=== PATIENT | female | born 1990 | race Caucasian/White ===

== ENCOUNTER → 2018-02-16 16:53 | Outpatient (CLI) | payer MEDICAID, SELFPAY ==
[2018-02-16 17:45] LABS: Hematocrit 35.9 % (37-47); Hemoglobin 12.1 g/dl (12.0-15.0); Mean Corp Hgb Conc 33.7 g/gl (32-36); Mean Corpuscular Hgb 31.2 pg (27.0-32.0); Mean Corpuscular Volume 92.5 fL (81-99); Mean Platelet Vol. 10.7 fl (6.2-12.0); Platelet Count 208 K/mm3 (150-450); RBC Distribution Width SD 42.7 fl (35.1-43.9); Red Blood Count 3.88 M/mm3 (4.2-5.4)
[2018-02-16 17:48] LABS: Scan Indicated on CBC? Y/N NO
[2018-02-17 08:14] LABS: Vitamin D,25 Hydroxy 14.2 ng/mL (29.95-100.01)
== END ==
PROVIDERS: Visit Provider Obstetrics & Gynecology
DX: Z34.83 Encounter for supervision of other normal pregnancy, third trimester (principal)
CPT/HCPCS: 82306; 85027

== ENCOUNTER → 2018-03-02 16:23 | Outpatient (CLI) | payer MEDICAID, SELFPAY ==
[2018-03-02 18:21] LABS: ALB/GLOB Ratio 0.7 RATIO (0.9-2.4); AST(SGOT) 18 U/L (15-37); Alanine Aminotransfer ALT/SGPT 52 U/L (13-56); Albumin, Serum 2.7 g/dL (3.2-5.0); Alkaline Phosphatase 71 U/L (45-117); Anion Gap 9 (5-15); BUN 11 mg/dL (7-18); BUN/Creat Ratio 35.9 RATIO (10-20); Calcium,Total 8.9 mg/dL (8.5-10.1); Chloride 108 mmol/L (98-107); Creatinine, Serum 0.31 mg/dL (0.55-1.02); EST Glomerular Filtration Rate 273 mL/min (>60); Est Glom Filt Rate - Afr Amer 330 mL/min (>60); Globulin 3.7 g/dL (2.2-4.2); Glucose 69 mg/dL (74-106); Potassium 3.7 mmol/L (3.5-5.1); Protein, Total 6.4 g/dL (6.4-8.2); Sodium Level 138 mmol/L (136-145); Uric Acid 3.1 mg/dL (2.6-6.0)
== END ==
PROVIDERS: Visit Provider Obstetrics & Gynecology
DX: O13.3 Gestational [pregnancy-induced] hypertension without significant proteinuria, third trimester (principal); Z3A.00 Weeks of gestation of pregnancy not specified
CPT/HCPCS: 36415; 80053; 84550

== ENCOUNTER → 2018-03-03 17:50 | Outpatient (CLI) | payer MEDICAID, SELFPAY ==
[2018-03-03 19:17] LABS: 24 Hour Urine Protein 251.1 mg/24HR (<150 MG/24HR); 24HR. UA Prot. Total Volume 1550 mL; 24HR. Urine Creatinine 1.51 g/24 HR (0.70-1.90); Urine Protein (24 Hour) 16.2 mg/dL (<11.9)
== END ==
PROVIDERS: Visit Provider Obstetrics & Gynecology
DX: O13.3 Gestational [pregnancy-induced] hypertension without significant proteinuria, third trimester (principal); Z3A.00 Weeks of gestation of pregnancy not specified
CPT/HCPCS: 82570; 84156

== ENCOUNTER 2018-03-19 06:30 | Outpatient (CLI) | payer MEDICAID, SELFPAY ==
[2018-03-19 06:53] VITALS: BMI 39.6
[2018-03-19 06:57] LABS: Bacteria 0 SEEN /hpf (None Seen); Color, Urine Yellow (Yellow); Glucose, Dipstick Normal (Normal); Ketone-Dipstick 5 mg/dl (Negative); Leukocyte Esterase-Dipstick 25 /ul (Negative); Mucous, Urine 0 SEEN /hpf (<or=2+); Nitrite-Dipstick Negative (Negative); Occult Blood-Urine 150 /ul (Negative); Protein-Dipstick 15 mg/dl (Negative); Red Blood Cells-Urine 0 SEEN /hpf (0-5); Specific Gravity, Urine 1.025 (1.002-1.030); Squamous Epithelial Cells - UA 0 SEEN /hpf (5-10); Urine Bilirubin Dipstick Negative (Negative); Urine Clarity Sl. Cloudy (Clear); Urine Urobilinogen Normal (Normal); White Blood Cells 0 SEEN /hpf (0-5)
[2018-03-19 08:56] LABS: Bedside Glucose 96 mg/dL (70-110)
--- NOTE | 2018-04-01 07:23 | OB.TRI.NOTE ---
- Problem List (1) 33 weeks gestation of Status: Acute History of Present Illness Date of Service: 03/19/18 Was patient seen by the physician?: No Reason For Visit: R/O LABOR Final ELIJAH: 05/06/18 Final ELIJAH Source: US <20 weeks Gestational age: 33 weeks 1 day History of Present Illness: 27yo @ 33 1/7wga with c/o contractions. Home Medications Medication Instructions Recorded Acetaminophen [Tylenol] 325 mg PO Q6H 03/19/18 Glyburide 1.25 mg PO BID 03/19/18 Vits [Prenatabs FA] 1 tablet PO DAILY 03/19/18 Allergies Penicillins Allergy (Verified 03/19/18 06:49) Hives NST - FHR Rate Baby A Baseline: 130 Variability:: Moderate Accelerations:: 15 x 15 Decelerations:: None NST Reactive:: Yes FHR Category:: Category I Uterine Activity:: irritability Impression/Plan 27yo at 33 1/7wga with false labor, Cat I FHR, h/o GDM U/A - neg FS - 96 SVE closed/long/high per RN; contractions resolved with food, water Will plan for d/c home
== END 2018-03-19 10:30 | disposition home or self-care (01) ==
LOC: WPOUT 06:41 → WP 06:43
PROVIDERS: Visit Provider Obstetrics & Gynecology
DX: O47.03 False labor before 37 completed weeks of gestation, third trimester (principal); Z3A.33 33 weeks gestation of pregnancy
CPT/HCPCS: 59025; 59050; 81001; 82962; 99218; G0378

== ENCOUNTER → 2018-04-20 17:34 | Outpatient (CLI) | payer MEDICAID, SELFPAY ==
[2018-04-20 19:34] LABS: Group B Strep DNA By PCR Negative (Negative); Internal Control PASS; Probe Check PASS; Specimen Processing Control PASS
== END ==
PROVIDERS: Visit Provider Obstetrics & Gynecology
DX: Z36.85 Encounter for antenatal screening for Streptococcus B (principal)
CPT/HCPCS: 87081; 87086; 87088; 87653

== ENCOUNTER 2018-04-30 05:18 | Inpatient (IN) | payer MEDICAID, SELFPAY ==
[2018-04-29 09:23] VITALS: BMI 39.9
[2018-04-29 10:30] LABS: Absolute Neutrophil Count 7.8 X10^3/uL (2.0-7.7); Basophil# 0.02 X10^3/uL; Basophil% 0.2 % (0-1); Eosinophil# 0.13 X10^3/uL; Eosinophils% 1.1 % (0-5); Hematocrit 40.1 % (37-47); Hemoglobin 13.2 g/dl (12.0-15.0); Lymphocyte % 23.1 % (19-41); Mean Corp Hgb Conc 32.9 g/gl (32-36); Mean Corpuscular Hgb 29.7 pg (27.0-32.0); Mean Corpuscular Volume 90.3 fL (81-99); Monocyte# 0.96 X10^3/uL; Monocyte% 8.2 % (0-10); Neutrophil # 7.83 X10^3/uL (2.7-7.7); Neutrophil % 67.1 % (47-70); POSITIVE COUNT NO; POSITIVE DIFFERENTIAL NO; POSITIVE MORPHOLOGY NO; Platelet Count 175 K/mm3 (150-450); RBC Distribution Width CV 13.4 % (11.6-14.6); RBC Distribution Width SD 43.7 fl (35.1-43.9); Red Blood Count 4.44 M/mm3 (4.2-5.4); White Blood Count 11.7 K/mm3 (4.4-11.0)
[2018-04-30] VITALS (19 sets, daily range): BP systolic 108–141; BP diastolic 53–84; PULSE 80–104; RESP 16–18; TEMP 36.1–36.7; O2SAT 95–100; BMI 39.9
--- NOTE | 2018-04-30 | LES_PTH ---
PATIENT: LUIS DANIEL MONTES LOC: WP U#:[id number] AGE/SX: 27/F ROOM: WP006 RE04/30/[address]: Dr. Gaby Buitrago MD : 1990 BED: 1 DIS: 05/02/2018 SPEC #: [id number] RECD: 04/30/18 14:28 STATUS: JAILYN REGissell #: [id number] LUIS: 04/30/18 00:[address]: Gaby Kearney DEPT: SURGICAL PATHOLOGY RECD BY: Isra Del Angel ENTERED: 04/30/18 14:43 SP TYPE: Lesion OTHR DR: No Primary Care Phys Tissues: A - Omentum, NOS B - Fallopian tube Procedures: Surgery Specimen Level II Surgery Specimen Level IV HEADER OPERATION: Bilateral tubal ligation PRE-OP DIAGNOSIS: LTCS, omental lesion TISSUE SUBMITTED: A - Omental lesion, B ? Fallopian tubes MICROSCOPIC DIAGNOSIS A. Omental lesion, Biopsy: A fibrous nodule with extensive fat necrosis. Adjacent adipose tissue with reactive changes. B. Bilateral fallopian tubes, tubal ligation: Completely transected segments of bilateral fallopian tubes, no pathologic diagnosis. ELISABETH:gay 05/05/18 TC:5 COMMENT Case has been reviewed in consultation with Dr. Castellanos who concurs with the above diagnosis. IDC:AM MICROSCOPIC DESCRIPTION Slides are reviewed. GROSS DESCRIPTION A - Received is one container labeled with the patient's name and not further designated. The specimen consists of a raza, indurated nodule measuring 1.5 x 1.5 x 1.3 cm. Also present is a piece of adipose tissue measuring 2.5 x 2.5 x 0.2 cm. The adipose tissue is attached to a nodule with a thin string. The nodule is bisected and reveals yellowish-brown, friable cut surfaces. The entire specimen is submitted in two cassettes as follows: 1 ? one bisected nodule after short decalcification, 2 ? rest of the specimen. B - Received in fixative is one container labeled with the patient's name and designated left suture. The specimen consists of two tubular pieces of pink-raza soft tissue with the left tube identified by a suture and inked black. The right tube measures 1.8 cm in length and 1 cm in diameter. The left tube measures 1.5 cm in length and 0.8 cm in diameter. Both pieces will be sectioned at the time of embedding. The entire specimen is submitted in one cassette. / SJ:nydia 04/30/18 TC:5 CPT: 04787 x2, 61377
[2018-04-30] MEDS: Lactated Ringers 1,000 ML 999 ML IV (05:42)
[2018-04-30 05:56] LABS: Bedside Glucose 180 mg/dL (70-110)
[2018-04-30] MEDS: Sodium Citrate/Citric Acid 30 ML UDC PO (06:43)
[2018-04-30] MEDS: Lactated Ringers 1,000 ML 150 ML IV (06:43)
[2018-04-30] MEDS: Clindamycin 900 MG/50 ML BAG 75 MG IV (07:22)
--- NOTE | 2018-04-30 07:29 | PCM.HPOB.BLA ---
- Problem List (1) Gestational diabetes mellitus (GDM) Status: Acute Qualifiers: Gestational diabetes mellitus control: oral hypoglycemic-controlled Trimester: third trimester Qualified Code(s): O24.415 - Gestational diabetes mellitus in , controlled by oral hypoglycemic drugs (2) 39 weeks gestation of Status: Acute History and Physical Date of Admission: 04/30/18 Surgical History and Physical Date: 04/30/2018 Name: LUIS DANIEL MONTES Age: 27 Date of : 1990 Luis Daniel Montes, a 27 year old female 1 0 0 0 1, presents for Primary LTCS, [facility] on 07/31/18 at 7:30. -- Luis Daniel is a at 39 1/7 weeks gestation with GDMA2 on Glyburide admitted for scheduled elective section. She has history of 1 prior complicated by GDM with shoulder dystocia with a male weight 10lb 1oz. She is without complaints this morning. Fetus is active. Denies contractions, leaking of fluid or vaginal bleeding. [facility] [address] MEDICATIONS HISTORY: Current medications prescribed by our practice are: 1. Celexa 20 mg tablet, 1 tab PO qday 2. glyburide 1.25 mg tablet, One pill by mouth twice a day 3. Vitamin D3 5,000 unit tablet, 1 tab PO daily Patient is also takin. Gummy 400 mcg-35 mg-25 mg-5 mg chewable tablet, One pill by mouth once a day ALLERGIES: Penicillins, Hives and/or rash Infections - HX. OF UTI'S, Illnesses/Medical history - depression, PCOS and prediabetes, gestational diabetes Accidents - None Hospitalizations - Childbirth, surgery and pancreatitis Review of Systems: SOCIAL HISTORY: Alcohol Use - RARELY not while Smoking - Smoker x 16 years. Currently 6-8 cigs daily. Usually smokes only at work. Diet - balanced Diet, caffeine > 2 drinks per day and 20 oz day Mt Dew. Water intake prob 4-5 glasses day. 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 LIves w husb and baby. Place of - [place] Hours Worked - 40-48 Spouse-Sig Other Name - Mike Montes Spouse-Sig Other Occupation - Floor Technical Education Teacher Spouse-Sig Other Phone No - [phone] Children Name(s) - Dionte Control - FAMILY HISTORY: Non-contributory MENSTRUAL HISTORY: LMP Known?- No, Prior Menses - 06/16/2016, LMP - 07/19/16, Age Onset Menarche - 10 PAST PREGNANCIES: Total Pregnancies - 2; Full Term Pregnancies - 1; Premature - 0; Abortions, Induced - 0; Abortions, Spontaneous - 0; Ectopics - 0; Multiple Births - 0; Living Children - 1 2017 - IOL with 11h active labor, , shoulder dystocia, MALE, 10lb 1oz, Dionte - gestational diabetes SURGICAL HISTORY: 1. Gall bladder removed 2008 ; - PHYSICAL EXAM BP- 136/84 Sitting, Right arm, regular cuff Weight- 105.7 kg Height- 63.5 inch BMI:40 T 36.7 C P 106 R 20 CONSTITUTIONAL - NAD, well nourished, and well developed SKIN - No rash, lesions, or ulcers HEENT - Normocephalic, PERRLA, EOMI NECK - No nodes, no nuchal rigidity and thyroid normal size and texture LUNGS - CTA x2 without wheezes, crackles or rales CARDIAC - Regular rate and rhythm without rubs, murmurs, or gallops BREAST - symmetric, nontender ABDOMEN - Without hepatosplenomegaly, distention, masses, rebound, or guarding; normal bowel sounds; no hernias EXTREMITIES - No edema or calf tenderness NEUROLOGICAL - normal gait, normal balance, normal motor PSYCHIATRIC - A and O to time, place, person, mood and affect External Genitial Vagina - deferred Urethra/Urethral Meatus - deferred Bladder - deferred Vagina - deferred Cervix - deferred Uterus - 40w size Adnexa - deferred FHR - 135bpm ASSESSMENT/PLAN: 1. Encounter for supervision of other normal , third trimester 2. Personal History Of Gestational Diabetes, Polycystic Ovarian Syndrome, Vitamin D Deficiency and Unspecified 3. Sterilization request -h/o prior shoulder dystocia -Us indicated FEMALE fetus, EFW with HC/AC 1.03 -Following discussion, patient and opt to proceed with section. R/B/I/A including trial of labor and potential for recurrent shoulder dystocia associated with reviewed. -Sterilization requested - reviewed various contraceptive options including reversible and non-reversible options. R/B/I of tuabl sterilization reviewed at length. Patient understands permanence and risk for failure as well as risk for ectopic should occur. Will plan bilateral tubal ligation with partial salpingectomy. -Consents signed previously, again reviewed today. Proceed as planned with section and BTL. Declines trial of labor. Declines LARC during hospitalization.
[2018-04-30] MEDS: Oxytocin 30 units/NS 500 ml 30 UNITS/500 ML IV.SOLN 167 UNITS IV (08:11)
[2018-04-30] MEDS: Lactated Ringers 1,000 ML 100 ML IV ×2 (09:00→17:37)
--- NOTE | 2018-04-30 09:10 | PCM.IMED.CSR ---
- Problem List (1) Gestational diabetes mellitus (GDM) Status: Acute Qualifiers: Gestational diabetes mellitus control: oral hypoglycemic-controlled Trimester: third trimester Qualified Code(s): O24.415 - Gestational diabetes mellitus in , controlled by oral hypoglycemic drugs (2) 39 weeks gestation of Status: Acute Y-Fnflejl-Gxalqwntv PostOp Date of Procedure: 04/30/18 Primary Surgeon/Physician: Gaby Nicole, flatwork folder: Jay Stewart Pre-op Diagnosis: Desires elective sterilization, - - Prior Shoulder dystocia, Gestational Diabetes Post-Op Diagnosis: Desires elective sterilization, - - Prior shoulder dystocia, gestational diabetes mellitus Surgery/Procedure Performed: Primary low transverse Section, - - Bilateral tubal ligation Description of Surgical Findings:: normal appearing tubes and ovaries Hardened, round omental nodule with rounded spicules. Estimated Blood Loss: 900 ml Specimens Removed: bilateral tubes, omental lesion Drain: Solis to straight drain Type of Anesthesia: Spinal - Admit VTE Documentation VTE Present on Admission: No VTE Mechan Device Prophylaxis: SCD's VTE Pharm Prophylaxis ordered?: No
--- NOTE | 2018-04-30 09:14 | OP.PN_ITS ---
- Problem List (1) Gestational diabetes mellitus (GDM) Status: Acute Qualifiers: Gestational diabetes mellitus control: oral hypoglycemic-controlled Trimester: third trimester Qualified Code(s): O24.415 - Gestational diabetes mellitus in , controlled by oral hypoglycemic drugs (2) 39 weeks gestation of Status: Acute O-Mwcijni-Oodlpwbrz PostOp Date of Procedure: 04/30/18 Primary Surgeon/Physician: Gaby Nicole, global human resources director: Jay Stewart Pre-op Diagnosis: Desires elective sterilization, - - Prior Shoulder dystocia, Gestational Diabetes Post-Op Diagnosis: Desires elective sterilization, - - Prior shoulder dystocia, gestational diabetes mellitus Surgery/Procedure Performed: Primary low transverse Section, - - Bilateral tubal ligation Description of Surgical Findings:: normal appearing tubes and ovaries Hardened, round omental nodule with rounded spicules. Estimated Blood Loss: 900 ml Specimens Removed: bilateral tubes, omental lesion Drain: Solis to straight drain Type of Anesthesia: Spinal - Admit VTE Documentation VTE Present on Admission: No VTE Mechan Device Prophylaxis: SCD's VTE Pharm Prophylaxis ordered?: No
--- NOTE | 2018-04-30 09:14 | PCM.OB.CSR ---
- Problem List (1) Gestational diabetes mellitus (GDM) Status: Acute Qualifiers: Gestational diabetes mellitus control: oral hypoglycemic-controlled Trimester: third trimester Qualified Code(s): O24.415 - Gestational diabetes mellitus in , controlled by oral hypoglycemic drugs (2) 39 weeks gestation of Status: Acute Delivery Classification: Scheduled Final ELIJAH: 04/29/18 Final ELIJAH Source: US <20 weeks Gestational age: 40 Weeks and 2 Days Indications: Oleg is a 27-year-old 2 para 1001 admitted at 39-1/7 weeks gestational age for scheduled elective section. She previously had a spontaneous vaginal delivery of a macrosomic with shoulder dystocia. Following counseling she opted to proceed with section for this delivery. Indications for : - - History of shoulder dystocia, sterilization request Description of Procedure: The patient was taken to the operating room and spinal analgesia was administered. She is placed in a dorsal supine position with left lateral tilt. The perineum and abdomen were prepped and draped in sterile fashion. The spinal was not adequate. Anesthesiology administered ketamine and I placed subcutaneous injection of 1% lidocaine. This was also injected layer by layer including the fascial and peritoneal surfaces throughout the procedure. A Pfannenstiel incision was made using a scalpel and brought down to incise the subcutaneous tissue and rectus fascia at the midline. Subcutaneous tissue was bluntly dissected off the fascia laterally. The fascial incision was dissected laterally and cephalad using curved Childers scissors. The superior leaflet of the rectus fascia was grasped using Lissy clamps and bluntly dissected and sharply dissected from the underlying rectus muscle. In a similar fashion the inferior rectus fascia was dissected from the underlying muscle. The rectus muscles were bluntly at the midline. The peritoneum was identified and entered [sharply]. The bladder blade was placed into the abdomen and the vesicouterine peritoneal fold identified. The fold was incised and a bladder flap created. Bladder blade was then repositioned to the abdomen. A low transverse hysterotomy was made using the [Metzenbaum scissors] to level of the membranes. The hysterotomy was extended bluntly cephalad and caudad. The membranes were then ruptured revealing clear fluid. The head was elevated and brought to the level of the hysterotomy and the infant delivered revealing vigorous [female] . The cord was doubly clamped and cut after approximately 30-60 seconds. The was passed to awaiting [nursery personnel]. The placenta was [expressed] from the uterus and appeared intact on inspection. The uterus was exteriorized and cleared of debris. The hysterotomy was then repaired using 0 Vicryl running lock suture. A second imbricating layer was also placed for additional hemostasis. Attention was turned to the right adnexa. The tube and fimbria were identified. A Waleska tubal ligation with partial salpingectomy was performed using 0-plain gut. In similar fashion this was also done on the left tube. The uterus and adnexa were returned to the abdomen. The omentum had a 1 cm hardened nodule with rounded spicules. Its etiology was uncertain thus this omentum was doubly clamped and the lesion excised. The distal omentum was suture-ligated using 0 Vicryl with good hemostasis the omentum return to the abdomen. The bladder blade was removed. The peritoneum was reapproximated using 2-0 Vicryl running suture. The rectus fascia was closed using 0 Vicryl running suture. Small capillary bleeding the subcutaneous tissue controlled using the Bovie device. The subcutaneous tissue was reapproximated using 2-0 Vicryl. The skin was closed using 4-0 Monocryl subcuticularly. A silver Mepilex occlusive dressing was placed over the incision. The fundus was firm. The patient was then transferred to the recovery room without complication. Sponge, instrument, and needle counts were correct ?2. A total of 30mL of 1% lidocaine was administered. Findings: normal appearing tubes and ovaries; Hardened, round omental nodule with rounded spicules. Amniotic Membrane Rupture Type: Artificial Amniotic Fluid Description: Clear Placenta Disposition: [facility] Specimen(s) sent to pathology: bilateral tubes, omental lesion Drain: Solis to straight drain Fluids Replaced: 1700 ml Cord Entanglement: None Nuchal Cord Compression: Without compression Cord Vessel Description: 3 Vessels Esitmated Blood Loss (ml): 900 Infant Gender: Female (1 minute): 9 (5 minute): 9 Delayed cord clamping: Yes Pre-op Antibiotic Given: - - Gentamicin 5mg/kg IV x 1, Clindamycin 900mg IV x 1 Pt instructed on risks of surgery: Bleeding, Anesthesia Risks, Infection, Injury to surrounding structure(s) including bowel and bladder, Availability of other non-permanent control options Complications: None - Admit VTE Documentation VTE Present on Admission: No VTE Mechan Device Prophylaxis: SCD's VTE Pharm Prophylaxis ordered?: No
--- NOTE | 2018-04-30 10:19 | NURSING ---
Patient has silver mepilex over surgical incision.
[2018-04-30 10:50] LABS: Bedside Glucose 112 mg/dL (70-110)
--- NOTE | 2018-04-30 13:47 | NURSING ---
Report given to Rosalinda Birmingham RN. She will assume care at this time.
[2018-04-30] MEDS: Citalopram 20 MG Tablet PO (16:15)
[2018-04-30] MEDS: Prenatal Vits Tablet 1 TABLET PO (16:15)
--- NOTE | 2018-04-30 21:09 | NURSING ---
Resp therapy called to deliver incentive spirometer.
[2018-05-01] VITALS (7 sets, daily range): BP systolic 122–140; BP diastolic 57–80; PULSE 80–105; RESP 16–40; TEMP 36.2–36.8; O2SAT 96–99
[2018-05-01] MEDS: Ketorolac 30 MG/ML Syringe IV ×4 (01:40→20:05)
[2018-05-01] MEDS: Lactated Ringers 1,000 ML 100 ML IV (04:00)
[2018-05-01 05:56] LABS: Bedside Glucose 102 mg/dL (70-110)
--- NOTE | 2018-05-01 05:56 | PN.OBGYN_ITS ---
Patient Problems: Active and Suspected Problems (Last Updated 05/01/18 @ 06:00 by Gaby Buitrago MD) Gestational diabetes mellitus (GDM) (Acute) 39 weeks gestation of (Acute) Subjective: Chastity is sore, but pain is improved with Toradol. She is using incentive spirometry. Denies chest pain, shortness of breath. She is bottlefeeding. Not yet passed gas. Denies nausea or vomiting. Informed by RN that patient with tachypnea while sleeping earlier in evening to 40, now resolved. On discussion, pt indicates her tells her she snores often. She has not had a prior sleep study. Objective: AVSS - Physical Exam General: Alert, Oriented x3, Cooperative, No apparent distress HEENT: Atraumatic, PERRLA, EOMI, Normocephalic Lungs: Clear to auscultation, Normal air movement Cardiovascular: Regular rate, Regular Rhythm, Normal S1, Normal S2, No murmurs Abdomen: Bowel Sounds Present, Soft, Non Tender, - - Fundus firm and nontender, incisional dressing c/d/i, lochia moderate Extremities: No edema, No Calf Tenderness Neurological: Neuro grossly intact Psych/Mental Status: Normal Affect, Appropriate, Alert and oriented to time, place, person, mood and affect Vital Signs Temp Pulse Resp BP Pulse Ox 97.1 F L 89 38 H 127/68 H 96 05/01/18 04:40 05/01/18 04:40 05/01/18 04:40 05/01/18 04:40 05/01/18 04:40 Oxygen Delivery Method Room Air Weight: 105.7 kg Body Mass Index (BMI) 39.9 Intake and Output for Last 24 Hours 04/29/18 04/30/18 05/01/18 23:59 23:59 23:59 Intake Total 4065 / 4065 923 / 923 Output Total 200 / 200 1000 / 1000 Balance 3865 / 3865 -77 / -77 POC Glucose 04/30/18 04/30/18 10:43 05:28 POC Glucose 112 H 180 H Medical Necessity - Tobacco Use Smoking Status: Current every day smoker Tobacco Use: Non-smoker Assessment/Plan All Active Problems (Last Updated 05/01/18 @ 06:00 by Gaby Nicole MD) Gestational diabetes mellitus (GDM) (Acute) Shoulder (girdle) dystocia during labor and deliver, delivered (Resolved) (spontaneous vaginal delivery) (Resolved) 39 weeks gestation of (Acute) 27yo POD#1 s/p PLTCS with BTL -Rh positive, Rubella immune -Ambulation encouraged -Incentive spirometry encouraged -f/u am CBC -GDM: Fasting FS 102, plan for 2h OGTT in 6-12 weeks. -Routine postop care -Bottlefeeding
[2018-05-01] MEDS: 0.9% Saline Lock 10 ML Syringe IV ×2 (06:16→20:05)
[2018-05-01 06:21] LABS: Hematocrit 30.2 % (37-47); Hemoglobin 10.2 g/dl (12.0-15.0); Mean Corp Hgb Conc 33.8 g/gl (32-36); Mean Corpuscular Hgb 31.1 pg (27.0-32.0); Mean Corpuscular Volume 92.1 fL (81-99); Mean Platelet Vol. 10.5 fl (6.2-12.0); Platelet Count 140 K/mm3 (150-450); RBC Distribution Width CV 13.2 % (11.6-14.6); RBC Distribution Width SD 43.5 fl (35.1-43.9); Red Blood Count 3.28 M/mm3 (4.2-5.4); White Blood Count 12.6 K/mm3 (4.4-11.0)
[2018-05-01 06:22] LABS: Scan Indicated on CBC? Y/N NO
[2018-05-01 06:27] LABS: ALB/GLOB Ratio 0.7 RATIO (0.9-2.4); AST(SGOT) 18 U/L (15-37); Alanine Aminotransfer ALT/SGPT 13 U/L (13-56); Alkaline Phosphatase 70 U/L (45-117); Anion Gap 8 (5-15); BUN 7 mg/dL (7-18); Calcium,Total 8.1 mg/dL (8.5-10.1); Chloride 109 mmol/L (98-107); Creatinine, Serum 0.47 mg/dL (0.55-1.02); EST Glomerular Filtration Rate 167 mL/min (>60); Est Glom Filt Rate - Afr Amer 202 mL/min (>60); Estimated Creatinine Clearance 152.51 ml/min; Glucose 98 mg/dL (74-106); Potassium 4.1 mmol/L (3.5-5.1); Sodium Level 139 mmol/L (136-145)
--- NOTE | 2018-05-01 06:46 | PCM.DC.D&C ---
Discharge Diet: No Restrictions Discharge Activity: Return to Normal Activity, May not drive while taking narcotic pain medications., May Shower, - - No tub bath May resume sexual activity in: 6 weeks Lifting Restrictions: 10 lb Call your doctor if your incision/area has: Continuous Slow Oozing, Sudden Increased Bleeding, Increased Redness Call your doctor if you observe: Fever of 101 or Higher, Inability to urinate, Inability to have a bowel movement, Using more than one pad per hour, Shortness of breath, Chest pain, Calf discomfort, Uncontrolled pain Suture Line Care: Avoid Pulling/Pushing Remove Dressing in (days):: 5 Cleanse incision/area with: Soap & Water Allergies/Adverse Reactions: Allergies Penicillins Allergy (Verified 04/30/18 05:29) Hives Medications to take at Discharge Acetaminophen [Tylenol] 325 mg PO Q6H 03/19/18 Glyburide 1.25 mg PO BID 03/19/18 Vits [Prenatabs FA] 1 tablet PO DAILY 03/19/18 Citalopram Hydrobromide [Celexa] 20 mg PO DAILY 04/29/18 Docusate Sodium [Colace] 100 mg PO BID PRN PRN #60 cap 05/01/18 Ibuprofen 600 mg PO TID PRN #30 tab 05/01/18 Oxycodone [Oxyir] 1 - 2 tab PO Q4H PRN PRN 3 Days #28 tablet 05/01/18 The following prescriptions were given: Oxycodone [Oxyir] 1 - 2 tab PO Q4H PRN PRN 3 Days #28 tablet PRN Reason: Pain Docusate Sodium [Colace] 100 mg PO BID PRN PRN #60 cap PRN Reason: Constipation Ibuprofen 600 mg PO TID PRN #30 tab PRN Reason: Pain Primary Care Physician: Care Physician,No Primary [Primary Care Provider] - Please Follow Up With: Gaby Nicole MD When: 7-10 days
--- NOTE | 2018-05-01 07:11 | NURSING ---
0615 Iv to mari tellesey removed at 0630. Instructions given to mom regarding call RN before getting up first time and need to acquire 2 voids.
[2018-05-01 09:38] LABS: Pathology Specimen OB SEE PATHOLOGY REPORT
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
[2018-05-01] MEDS: Citalopram 20 MG Tablet PO (10:57)
[2018-05-01] MEDS: Prenatal Vits Tablet 1 TABLET PO (10:57)
[2018-05-01] MEDS: Senna/Docusate Sodium 1 Tablet PO (22:57)
[2018-05-02] MEDS: 0.9% Saline Lock 10 ML Syringe IV ×2 (01:48→08:22)
[2018-05-02] MEDS: Ketorolac 30 MG/ML Syringe IV ×2 (01:48→08:21)
[2018-05-02 01:50] VITALS: BP 121/73; PULSE 98; RESP 18; TEMP 36.7; O2SAT 97
[2018-05-02 08:00] VITALS: BP 133/78; PULSE 101; RESP 24; TEMP 36.9
--- NOTE | 2018-05-02 10:37 | PN.OBGYN_ITS ---
Patient Problems: Active and Suspected Problems (Last Updated 05/01/18 @ 06:00 by Gaby Buitrago MD) Delivery by elective section (Acute) Gestational diabetes mellitus (GDM) (Acute) 39 weeks gestation of (Acute) Subjective: Pain is controlled. Patient has been out of bed, ambulating and voiding without difficulty. Passing flatus, no bowel movement yet. She desires discharge today. Objective: AVSS - Physical Exam General: Alert, Oriented x3, Cooperative, No apparent distress HEENT: Atraumatic, Normocephalic Lungs: Clear to auscultation, Normal air movement Cardiovascular: Regular rate, Regular Rhythm, Normal S1, Normal S2 Abdomen: Bowel Sounds Present, Soft, Non Tender, - - Fundus firm and nontender - Silverlon dressing c/d/i Extremities: No edema, No Calf Tenderness Neurological: Neuro grossly intact Psych/Mental Status: Normal Affect, Appropriate, Alert and oriented to time, place, person, mood and affect Vital Signs Temp Pulse Resp BP Pulse Ox 98.4 F 101 H 24 H 133/78 H 97 05/02/18 08:00 05/02/18 08:00 05/02/18 08:00 05/02/18 08:00 05/02/18 01:50 Oxygen Delivery Method Room Air Weight: 105.7 kg Body Mass Index (BMI) 39.9 Intake and Output for Last 24 Hours 04/30/18 05/01/18 05/02/18 23:59 23:59 23:59 Intake Total 4065 / 4065 2084 / 2084 Output Total 200 / 200 2325 / 2325 Balance 3865 / 3865 -241 / -241 Medical Necessity - Tobacco Use Smoking Status: Current every day smoker Tobacco Use: Non-smoker Assessment/Plan All Active Problems (Last Updated 05/01/18 @ 06:00 by Gaby Nicole MD) Delivery by elective section (Acute) Gestational diabetes mellitus (GDM) (Acute) Shoulder (girdle) dystocia during labor and deliver, delivered (Resolved) (spontaneous vaginal delivery) (Resolved) 39 weeks gestation of (Acute) 27yo POD#2 s/p PLTCS with BTL -Rh positive, Rubella immune -Ambulation encouraged -Routine postop care -Bottlefeeding -d/c home today
[2018-05-02] MEDS: Citalopram 20 MG Tablet PO (10:49)
[2018-05-02] MEDS: Prenatal Vits Tablet 1 TABLET PO (10:49)
--- NOTE | 2018-05-02 11:25 | DS.PCM_ITS ---
Discharge Date and Diagnosis - Problem List Patient Problems: Active and Suspected Problems (Last Updated 05/01/18 @ 06:00 by Gaby Buitrago MD) Delivery by elective section (Acute) Gestational diabetes mellitus (GDM) (Acute) 39 weeks gestation of (Acute) Date of Admission: 04/30/18 Date of Discharge: 05/02/18 - Primary Discharge Diagnosis Active and Suspected Problems (Last Updated 05/01/18 @ 06:00 by Gaby Buitrago MD) Delivery by elective section (Acute) Gestational diabetes mellitus (GDM) (Acute) 39 weeks gestation of (Acute) Hospital Course and Treatment Operations: - - Low transverse section, bilateral tubal ligation Summary of Care Provided: The patient is a 27 year old F admitted at 39 weeks gestation with h/o gestational diabetes for scheduled section for history of prior shoulder dystocia. She underwent a section with bilateral tubal ligation per her sterilization request. Her post-operative course was unremarkable apart from an episode of tachypnea with short duration apnea while sleeping. She was out of bed, ambulating and pain controlled. Her fasting blood sugar was 102 post-op. She was discharged to home on post operative day #2. Will plan for outpatient pulmonology follow up. Discharge Diet: No Restrictions Discharge Activity: Return to Normal Activity, May not drive while taking narcotic pain medications., May Shower, - - No tub bath May resume sexual activity in: 6 weeks Call your doctor if your incision/area has: Continuous Slow Oozing, Sudden Increased Bleeding, Increased Redness Call your doctor if you observe: Fever of 101 or Higher, Inability to urinate, Inability to have a bowel movement, Using more than one pad per hour, Shortness of breath, Chest pain, Calf discomfort, Uncontrolled pain Suture Line Care: Avoid Pulling/Pushing Remove Dressing in (days):: 5 Cleanse incision/area with: Soap & Water Home Medications: Medications to take at Discharge Acetaminophen [Tylenol] 325 mg PO Q6H 03/19/18 Vits [Prenatabs FA ] 1 tablet PO DAILY 03/19/18 Citalopram Hydrobromide [Celexa] 20 mg PO DAILY 04/29/18 Docusate Sodium [Colace] 100 mg PO BID PRN PRN #60 cap 06/23/18 Ibuprofen 600 mg PO TID PRN #30 tab 05/01/18 Oxycodone [Oxyir] 1 - 2 tab PO Q4H PRN PRN 3 Days #28 tablet 05/01/18 Following Prescrptions Were Given to Patient: Oxycodone [Oxyir] 1 - 2 tab PO Q4H PRN PRN 3 Days #28 tablet PRN Reason: Pain Docusate Sodium [Colace] 100 mg PO BID PRN PRN #60 cap PRN Reason: Constipation Ibuprofen 600 mg PO TID PRN #30 tab PRN Reason: Pain Primary Care Physician: Care Physician,No Primary [Primary Care Provider] - Please Follow Up With: Gaby Nicole MD When: 7-10 days Additional Instructions: Will refer to Pulmonology for sleep testing Disposition: Home Medical Necessity - Tobacco Use Smoking Status: Current every day smoker Tobacco Use: Non-smoker Meaningful Use Info Meaningful Use Diagnoses (Choose all that apply): None applicable
[2018-05-02 12:00] VITALS: BP 120/64; PULSE 90; RESP 18; TEMP 36.6; O2SAT 98
[2018-05-06 11:37] LABS: Pathology Specimen OB SEE PATHOLOGY REPORT
--- NOTE | 2018-05-06 11:38 | NURSING ---
Follow up phone call attempted left message
== END 2018-05-02 12:50 | disposition home or self-care (01) | DRG 371 ==
PROVIDERS: Admitting Provider Obstetrics & Gynecology; Visit Provider Obstetrics & Gynecology
PROC: 10D00Z1 Extraction of Products of Conception, Low, Open Approach (ICD-10-PCS; CPT 59514; principal; 2018-04-30 07:15)
DX: O24.425 Gestational diabetes mellitus in childbirth, controlled by oral hypoglycemic drugs (principal); O69.81X0 Labor and delivery complicated by cord around neck, without compression, not applicable or unspecified; O99.344 Other mental disorders complicating childbirth; F32.9 Major depressive disorder, single episode, unspecified; O99.334 Smoking (tobacco) complicating childbirth; F17.210 Nicotine dependence, cigarettes, uncomplicated; K66.8 Other specified disorders of peritoneum; Z3A.39 39 weeks gestation of pregnancy; Z37.0 Single live birth; Z79.84 Long term (current) use of oral hypoglycemic drugs; Z79.899 Other long term (current) drug therapy
CPT/HCPCS: 80053; 82962; 85025; 85027; 86850; 86900; 88302; 88305; 99218; J7120; A4216; G0378; J3490

== ENCOUNTER → 2018-06-21 18:04 | Outpatient (CLI) | payer MEDICAID, SELFPAY ==
[2018-06-21 18:36] LABS: Hemoglobin A1c 5.4 % (4.2-6.3)
== END ==
PROVIDERS: Visit Provider Obstetrics & Gynecology
DX: E28.2 Polycystic ovarian syndrome (principal)
CPT/HCPCS: 83036

== ENCOUNTER 2019-07-07 11:47 | Emergency (ER) | payer SELFPAY ==
[2019-07-07 11:48] VITALS: BP 164/103; PULSE 105; RESP 18; TEMP 36.4; O2SAT 98; BMI 39.4
--- NOTE | 2019-07-07 12:05 | ED.VIS.GEN ---
History of Present Illness Chief Complaint: Upper Extremity Injury Informant: Patient Onset: Days Context: Gradual Onset Timing: Intermittent Current Severity: Moderate Maximum Severity: Moderate Narrative: The patient is a [id number] female who presents to the emergency department with pain in her left forearm and intermittent numbness in her hand. 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 She states over the past 3 days, she is noticed some pain on the dorsum of her forearm and tingling into her hand. She states that is worse in the morning. She denies any weakness. She denies any loss of function. She thinks that she may have strained a muscle but does not recall any specific trauma. She has not tried anything for it. Prior similar symptoms: No Recent Illness/Hospitalization: No Past Medical History - Allergies and Home Meds Allergies/Adverse Reactions: Allergies Penicillins Allergy (Verified 07/07/19 11:50) Sally Primary Care Physician: Care Physician,No Primary [Primary Care Provider] - Prior records reviewed: Yes Past Medical History: None Surgical History: no surgical history Smoking Status: Current every day smoker Review of Systems General: Denies: Chills, Fever, Sweats Eyes: Denies: Visual changes - bilaterally, Diplopia ENT: Denies: Rhinorrhea, Sore throat Cardiovascular: Denies: Chest pain, Palpitations Respiratory: Denies: Dyspnea, Cough, Dyspnea on exertion Gastrointestinal: Denies: Abdominal pain, Nausea, Vomiting, Diarrhea, Melena, Hematochezia Genitourinary: Denies: Dysuria, Hematuria, Frequency Musculoskeletal: Reports: Myalgias. Denies: Back pain, Extremity Pain Skin: Denies: Rash, Wounds Neurological: Denies: Headache, Weakness, Numbness Physical Exam Vital Signs/Narrative: Vital Signs Temp Pulse Resp BP Pulse Ox 07/07/19 11:48 97.6 F L 105 H 18 164/103 H 98 Inital Vital Signs reviewed: Yes General: Well nourished, Well developed, No Acute Distress Head: Normocephalic, Atraumatic Eyes: Perrl, EOMI ENT: Moist mucous membranes, No rhinorrhea Neck: Supple, Nontender Cardiovascular: Regular rate, Regular rhythm, No murmurs Respiratory: No distress, CTA bilaterally, Chest nontender Abdomen: Soft, Nontender, Nondistended, Normal bowel sounds Back: Nontender, Normal Inspection Extremities: No edema, Tenderness - Patient has tenderness on the dorsum of the forearm near the elbow. It is over the muscular belly. She has normal pulses of the upper extremity. There is no edema. There is no erythema. She has normal neurologic function distally. Skin: Normal color, No rash Neurological: Alert, Oriented x3, Cranial nerves II-XII grossly intact, Normal Strength, Normal Sensation Psychological: Normal affect, Normal Mood Diagnostic/Tx/Re-eval - Medical Decision Making The patient symptoms do seem consistent with a tendinitis. She has had repetitive motion. With hyperflexion or extension of the wrist, she gets pain in the forearm. Pulses are normal. The compartments are soft. I am going to treat the patient with a Velcro wrist splint especially at night to allow the area to rest. She will also be placed on anti-inflammatories. She will be given outpatient orthopedic follow-up as needed. She is comfortable with this plan of care. Impression 1. Left forearm tendinitis ED Disposition - Plan for ED Patient: Instructions: Wrist Sprain Prescriptions: Naproxen [Naprosyn] 500 mg PO BID PRN #20 tab Prescription Printed Referrals: Chepe Mcmahon DO [STAFF PHYSICIAN] - 3-5 Days if not improving
== END 2019-07-07 12:28 | disposition home or self-care (01) ==
PROVIDERS: Emergency Provider Emergency Medicine
DX: M77.9 Enthesopathy, unspecified (principal); F17.200 Nicotine dependence, unspecified, uncomplicated; Z88.0 Allergy status to penicillin
CPT/HCPCS: 99283

== ENCOUNTER 2019-09-21 08:08 | Emergency (ER) | payer BC, SELFPAY ==
[2019-09-21 08:09] VITALS: BP 156/83; PULSE 96; RESP 17; TEMP 36.4; O2SAT 100; BMI 40.5
--- NOTE | 2019-09-21 08:20 | ED.DCSUM_ITS ---
History of Present Illness Chief Complaint: Abscess Informant: Patient Onset: Days - 2 days Context: Gradual Onset Current Severity: Moderate Maximum Severity: Moderate Narrative: Patient noted abscess to her left axilla 2 days ago. Patient is painful and swollen. She has not had any spontaneous drainage. She has had rare abscesses to this area. No fever or chills otherwise feels well. Past Medical History - Allergies and Home Meds Allergies/Adverse Reactions: Allergies Penicillins Allergy (Verified 09/21/19 08:09) Sally Primary Care Physician: Care Physician,No Primary [Primary Care Provider] - Doctors: Dr. Annette Buitrago Past Medical History: None Surgical History: no surgical history, - - Tubal ligation Smoking Status: Current every day smoker Review of Systems General: Denies: Chills, Fever Eyes: Denies: Visual changes - bilaterally ENT: Denies: Bilateral ear pain Cardiovascular: Denies: Chest pain Respiratory: Denies: Dyspnea, Cough Gastrointestinal: Denies: Abdominal pain, Nausea, Vomiting, Diarrhea Musculoskeletal: Reports: Swelling Skin: Reports: Abscess Neurological: Denies: Headache, Weakness, Parasthesia Allergy: Denies: Uticaria Physical Exam Vital Signs/Narrative: Vital Signs Temp Pulse Resp BP Pulse Ox 09/21/19 08:09 97.5 F L 96 17 156/83 H 100 Inital Vital Signs reviewed: Yes General: Well nourished, Well developed ENT: Moist mucous membranes Neck: Supple Cardiovascular: Regular rate, Regular rhythm Respiratory: No distress, CTA bilaterally Abdomen: Soft, Nontender Skin: - - Cutaneous abscess noted to the left axilla. 6 x 7 cm area of induration. No cellulitis. Neurological: Alert, Oriented x3, Normal Strength, Normal Sensation Psychological: Normal affect Diagnostic/Tx/Re-eval - Medical Decision Making Patient was given doxycycline. 4 cc of 1% lidocaine were infused locally. Stab incision is made with a #11 blade. There is return of blood and pus. Wound is irrigated and dressing is applied. Patient be referred to Dr. Kang for follow- up. Procedures Procedure(s): I&D of left axillary abscess. 4 cc of 1% lidocaine infused locally. Stab incision made with a #11 blade. Return of blood and pus. Wound irrigated and dressing applied. ED Disposition - Plan for ED Patient: Disposition: Home or Assisted Living Diagnosis: Abscess of left axilla Instructions: ABSCESS, Incision and Drainage Prescriptions: Doxycycline 100 mg PO BID #20 capsule Naproxen [Naprosyn] 500 mg PO BID PRN PRN #20 tablet PRN Reason: Pain Score 1-10/10 Referrals: Felix Kang MD [STAFF PHYSICIAN] - As Needed
[2019-09-21] MEDS: Doxycycline 100 MG CAPSULE PO (08:25)
== END 2019-09-21 09:55 | disposition home or self-care (01) ==
PROVIDERS: Emergency Provider Emergency Medicine
DX: L02.412 Cutaneous abscess of left axilla (principal); F17.200 Nicotine dependence, unspecified, uncomplicated; Z88.0 Allergy status to penicillin
CPT/HCPCS: 10060; 99283

== ENCOUNTER 2023-03-06 06:46 | Emergency (ER) | payer SELFPAY ==
[2023-03-06 06:47] VITALS: BP 151/83; PULSE 82; RESP 18; TEMP 36.4; O2SAT 99
[2023-03-06 06:50] VITALS: BMI 37.1
--- NOTE | 2023-03-06 07:15 | ED.VIS.BACK ---
HPI History of Present Illness Chief Complaint: Back Detail of Chief Complaint: Low back pain radiating to left hip and thigh Informant: patient Onset/Context/Timing Onset: Days (2 days ago) Context: Sudden Onset Injury: - (Awoke from falling asleep on the sofa with her son) Timing: Continuous Quality: Dull Location: Lumbar and Left Leg (Proximal left hip region and anterior mid thigh) Current Severity: Mild Maximum Severity: Severe Worsened by: improves with Movement, Ambulation, Bending and Lifting Relieved by: Nothing Associated Symptoms Associated Symptoms: Radiation to Left Leg and - (She denies saddle paresthesia or anesthesia. She denies foot drop. She denies buckling of her knees going up or down steps); Negative for Numbness, Tingling, Radiation to Right Leg, Fever, Abdominal Pain, Dysuria, Unable to Ambulate, Unable to Transfer, Urinary Retention, Urinary Incontinence, Constipation or Fecal Incontinence Narrative Narrative: Patient is a 32-year-old woman with type 2 diabetes for the past 2 to 3 years who presents with low back pain upon awakening 2 days ago. She states she fell asleep on the sofa with her son. The pain has been constant. She denies foot drop. She denies buckling of her knees going up and down steps. Denies saddle paresthesia anesthesia. Denies bowel bladder dysfunction. She states the pain is lower back radiates to the left greater trochanteric region and proximal anterior left thigh. She denies any constitutional symptoms. She denies history of direct trauma. She denies urinary symptoms. She reports history of sciatica. Upon further questioning patient has never had sciatica. She believes pain that radiates to the left greater trochanteric area is sciatica. She denies weight gain or weight loss. She denies night sweats. She reports that her last A1c level was 7. She also reports history of PTSD. Prior similar symptoms: Yes Recent Illness/Hospitalization: No [facility] Medical History Sciatica Shoulder (girdle) dystocia during labor and deliver, delivered (spontaneous vaginal delivery) Home Medications doxycycline monohydrate 100 mg capsule 100 mg PO BID #20 caps 09/21/19 [Rx Last Taken Unknown] naproxen 500 mg tablet 500 mg PO BID PRN PRN Pain Score 1-1010 #20 tabs 09/21/19 [Rx Last Taken Unknown] hydrocodone-acetaminophen 5-325mg 5mg-325mg 1 tab PO Q6H PRN PRN Pain 3 days #10 TABLETS 03/06/23 [Rx Last Taken Unknown] Allergy/AdvReac Type Severity Reaction Status Date / Time Penicillins Allergy Hives Verified 03/06/23 06:52 Surgical History H/O tubal ligation Social History (Updated 03/06/23 @ 07:[address] Salomon Vigil MD) household members: children Smoking Status: Current every day smoker tobacco type: cigarettes substance use type: does not use ROS ROS ED Constitutional Constitutional ED: Denies chills, fever(s), subjective or sweats Cardiovascular Cardiovascular: Denies chest pain or palpitations Respiratory/Chest Respiratory/Chest: Denies dyspnea or dyspnea on exertion Gastrointestinal Gastrointestinal: Denies abdominal pain, diarrhea, melena, nausea or vomiting Genitourinary Genitourinary ED: Reports other Details: Status post bilateral tubal ligation. ; Denies dysuria, hematuria or urinary frequency Musculoskeletal Musculoskeletal: Reports back pain; Denies arthralgias, myalgias or neck pain Integumentary Denies rash Neurologic Neurologic: Denies headache(s), paresthesias or weakness Hematologic/Lymphatic Hematologic/Lymphatic: Denies easy bleeding or easy bruising EXAM Physical Exam Const Vital Signs: 03/06/23 06:47 Temperature 97.6 F L Temperature Source Temporal Pulse Rate 82 Respiratory Rate 18 Blood Pressure 151/83 H Blood Pressure Mean 105 Pulse Ox 99 Oxygen Delivery Method Room Air Positive well nourished, well developed and obese Constitutional Narrative: Patient appears uncomfortable. General Appearance ED: well developed; Negative for pallor Nutritional Appearance: obese HEENT Reports moist mucous membranes HEENT Narrative: Head is atraumatic normocephalic. Ears are normal. Nares patent. Mucosa is moist. Eyes PERRL and EOMs intact bilaterally General Eye ED: Yes other Other Details: Patient wears glasses. ; Negative for pale conjunctiva or scleral icterus Neck supple and no JVD Resp normal respiratory effort and clear to auscultation bilaterally Cardio regular rate, regular rhythm, S1 normal heart sound, S2 normal heart sound and no murmurs Back/Spine normal to inspection; Negative for no thoracic nor lumbar tenderness Back/Spine Narrative: Femoral stretch test negative right and left. Patella and ankle reflex are 1+ and symmetric. EHL is intact. DP and PT pulse is intact. Sensation over L3, L4, L5 and S1 dermatome are symmetric and intact. Gait was observed and there is no foot drop. Patient is able to walk on heels and toes. Patient is able to perform a 1 legged squat right and left. Bending to the right causes minimal discomfort. Bending to the left causes significant discomfort. Standing on her right foot causes no discomfort. Standing on her left foot causes discomfort left of center. General Back: Negative for CVA tenderness Cervical Spine: Negative for cervical spine tenderness Lumbar Spine / Lower Back: ROM limited and straight leg raise negative bilaterally Extremity normal to inspection and no clubbing, cyanosis or edema General Extremety ED: Negative for edema or tenderness General Extremity: Negative for edema Neuro oriented x3 and no sensory deficits noted Sensorium / Orientation: alert Deep Tendon Reflexes: Rt Patellar (L4): 1+, Lt Patellar (L4): 1+, Rt Ankle (S1): 1+ and Lt Ankle (S1): 1+ Deep Tendon Reflexes Back: Rt Patellar (L4): 1+, Lt Patellar (L4): 1+, Rt Ankle (S1): 1+ and Lt Ankle (S1): 1+ Plantar Reflex: Downgoing: bilateral (No clonus) Psych Mood & Affect: depressed Skin no rashes or lesions noted and no wounds General Skin Exam: Negative for jaundice or pallor MDM MDM MDM Narrative Medical decision making narrative: Patient's history and physical exam is consistent with muscular low back pain. There is no concern based on history and physical exam herniated disc or cauda equina. There is no concern for osteomyelitis or discitis either. There is no findings that would suggest a epidural abscess either. Therefore, laboratory tests and imaging was not ordered/obtained. With this being atraumatic pain and only 2 days of pain per literature there is no indication for imaging. There are no records or labs available since 2018 when patient was seen for /delivery. Since patient does not have a ride home and drove herself she was instructed that she would receive a prescription for pain medicine. Will not prescribe NSAIDs since she is diabetic and concern for potential renal complications. Discharge Plan Triage Chief Complaint: Back ED Provider: Salomon Vigil Dx/Rx/DC Orders Clinical Impression: Myofascial low back pain, History of diabetes mellitus, type II, Obesity (BMI 30-39.9) Prescriptions: New hydrocodone-acetaminophen [hydrocodone-acetaminophen] 5-325 mg tablet 1 tab PO Q6H PRN PRN (Reason: Pain) 3 Days Qty: 10 0RF No Action doxycycline monohydrate 100 MG capsule 100 mg PO BID Qty: 20 0RF naproxen 500 MG tablet 500 mg PO BID PRN PRN (Reason: Pain Score 1-10/10) Qty: 20 0RF Primary Care Provider: Care Physician,No Primary Referrals: Care Physician,No Primary [Primary Care Provider] - Doctor,Your [Non-Staff] - 1 Week if not improving Activity Restrictions/Additional Instructions: 1. Rest morning 24 hours has not been shown to be of any significant benefit. 2. Recommend application of ice 6-10 times a day for the next 2 to 3 days. 3. Recommend contacting your employer to determine who is on your insurance plan. Disposition Disposition: Home, Self Care
== END 2023-03-06 07:38 | disposition home or self-care (01) ==
PROVIDERS: Emergency Provider Emergency Medicine; Visit Provider Emergency Medicine
DX: M54.50 Low back pain, unspecified (principal); E11.9 Type 2 diabetes mellitus without complications; E66.9 Obesity, unspecified; F17.210 Nicotine dependence, cigarettes, uncomplicated; Z68.30 Body mass index [BMI] 30.0-30.9, adult
CPT/HCPCS: 99282